=== PATIENT | female | born 1995 | race Caucasian/White ===

== ENCOUNTER 2017-01-09 18:10 | Emergency (ER) | payer SELFPAY ==
[2017-01-09 18:36] VITALS: BP 110/66
--- NOTE | 2017-01-09 19:49 | Emergency Department Report ---
ED Female HPI - General Chief complaint: Vaginal Bleeding Stated complaint: VAGINAL BLEEDING Time Seen by Provider: 01/09/17 19:10 Source: patient Mode of arrival: Ambulatory Limitations: No Limitations - History of Present Illness MD Complaint: vaginal bleeding -: Sudden Time: 11:45 Location: other ("vaginal spotting") Severity: mild Severity scale (0 -10): 2 Quality: other (no pain ) Consistency: intermittent Worsens with: none Are you Now?: No Last Menstrual Period: 12/11/16 EDC: 09/17/17 Associated Symptoms: vaginal bleeding. denies: abdominal pain, nausea/vomiting , fever/chills, dysuria, rash, shortness of breath, syncope, weakness - Related Data Sexually active: Yes : 0 Para: 0 A: 0 Previous Rx's Medication Instructions Recorded Last Taken Type metroNIDAZOLE [Flagyl] 500 mg PO Q12HR #20 tab 01/09/17 Unknown Rx Allergies Allergy/AdvReac Type Severity Reaction Status Date / Time No Known Allergies Allergy Unverified 01/09/17 18:34 ED Review of Systems ROS: Stated complaint: VAGINAL BLEEDING Other details as noted in HPI Constitutional: denies: chills, fever Eyes: denies: eye pain, eye discharge, vision change ENT: denies: ear pain, throat pain Respiratory: denies: cough, shortness of breath, wheezing Cardiovascular: denies: chest pain, palpitations Endocrine: no symptoms reported Gastrointestinal: denies: abdominal pain, nausea, diarrhea Genitourinary: other (vaginal spotting ). denies: urgency, dysuria, frequency, discharge Musculoskeletal: denies: back pain, joint swelling, arthralgia Skin: denies: rash, lesions Neurological: denies: headache, weakness, paresthesias Psychiatric: denies: anxiety, depression Hematological/Lymphatic: denies: easy bleeding, easy bruising ED Past Medical Hx - Past Medical History Previous Medical History?: No - Surgical History Past Surgical History?: No - Social History Smoking Status: Never Smoker Substance Use Type: None - Medications Home Medications: Home Medications Medication Instructions Recorded Confirmed Last Taken Type metroNIDAZOLE [Flagyl] 500 mg PO Q12HR #20 tab 01/09/17 Unknown Rx ED Physical Exam - General Limitations: No Limitations General appearance: alert, in no apparent distress - Head Head exam: Present: atraumatic, normocephalic - Eye Eye exam: Present: normal appearance, PERRL, EOMI Pupils: Present: normal accommodation - ENT ENT exam: Present: normal exam, mucous membranes moist - Neck Neck exam: Present: normal inspection - Respiratory Respiratory exam: Present: normal lung sounds bilaterally. Absent: respiratory distress - Cardiovascular Cardiovascular Exam: Present: regular rate, normal rhythm. Absent: systolic murmur, diastolic murmur, rubs, gallop - GI/Abdominal GI/Abdominal exam: Present: soft, normal bowel sounds - Rectal Rectal exam: Present: deferred - External exam: Present: normal external exam. Absent: erythema, swelling, lesions, lacerations, ecchymosis, bleeding Speculum exam: Present: erythema, vaginal discharge. Absent: cervical discharge , vaginal bleeding, foreign body, tissue, laceration Bi-manual exam: Present: normal bi-manual exam - Extremities Exam Extremities exam: Present: normal inspection, full ROM. Absent: tenderness - Back Exam Back exam: Present: normal inspection - Neurological Exam Neurological exam: Present: alert, oriented X3 - Psychiatric Psychiatric exam: Present: normal affect, normal mood - Skin Skin exam: Present: warm, dry, intact, normal color. Absent: rash ED Course Vital Signs 01/09/17 18:34 Temperature 98.1 F Pulse Rate 76 Respiratory 20 Rate Blood Pressure 110/66 O2 Sat by Pulse 98 Oximetry ED Medical Decision Making - Lab Data Result diagrams: 01/09/17 19:37 - Medical Decision Making pt endorse vaginal spotting immediately after intercourse today , this is third incident with partner in last month pt denies pain no dysuria no urgency no ferequency no discharge, pt no abdominal pain no n/v LMP 1 month ago , pt endorses " I came in because this is the 3rd time its happened" wet prep: BV, GC /Ch pending vaginal : mild vaginal erythema scant brownish discharge cervix os closed no discharge no lesions no rash no open sores will tx for bv pt directed to follow up with [facility] as scheduled in two weeks or return to emergency if symptoms worsen. will tx for bv as pt denies prophylactic STI treatment, labs noted normal hcg neg. Critical care attestation.: If time is entered above; I have spent that time in minutes in the direct care of this critically ill patient, excluding procedure time. ED Disposition Clinical Impression: Bacterial vaginosis Disposition: - TO HOME OR SELFCARE Is pt being admited?: No Does the pt Need Aspirin: No Condition: Good Instructions: Bacterial Vaginosis (ED) Prescriptions: metroNIDAZOLE [Flagyl] 500 mg PO Q12HR #20 tab Referrals: PRIMARY CARE, [Primary Care Provider] - 3-5 Days Forms: STI Treatment and Prevention, Work/School Release Form(ED) Time of Disposition: 21:33
[2017-01-09 20:17] LABS: Basophils % (Auto) 0.5 % (0.0-1.8); Eosinophils % (Auto) 3.2 % (0.0-4.3); Hematocrit 29.6 % (30.3-42.9); Mean Corpuscular HGB Conc 30 % (30-34); Mean Corpuscular Volume 82 fl (79-97); Platelet Count 239 K/mm3 (140-440); Red Cell Distribution Width 17.5 % (13.2-15.2); White Blood Count 9.9 K/mm3 (4.5-11.0)
[2017-01-09 20:37] LABS: Mean Corpuscular Hemoglobin 25 pg (28-32)
[2017-01-09 20:56] LABS: Bilirubin,Urine NEG (Negative); Blood,Urine MOD (Negative); Ketones,Urine NEG (Negative); Leukocyte Esterase,Urine TR (Negative); Mucus,Urine 2+ /HPF; Nitrite,Urine NEG (Negative); Protein,Urine <15 mg/dL mg/dL (Negative); Urobilinogen,Urine < 2.0 mg/dL (<2.0); WBC,Urine < 1.0 /HPF (0.0-6.0)
== END 2017-01-09 21:56 | disposition home or self-care (01) ==
LOC: ED 18:10
DX: N76.0 Acute vaginitis (principal)
CPT/HCPCS: 36415; 81001; 81025; 85025; 87210; 87591; 99284

== ENCOUNTER 2017-08-12 12:16 | Outpatient (CLI) | payer OTHER ==
[2017-08-12 14:02] LABS: Bacteria,Urine 1+ /HPF (Negative); Bilirubin,Urine NEG (Negative); Blood,Urine NEG (Negative); Color,Urine Yellow (Yellow); Mucus,Urine FEW /HPF; Nitrite,Urine NEG (Negative); Urobilinogen,Urine < 2.0 mg/dL (<2.0)
[2017-08-12 14:09] LABS: Amphetamine Screen,Urine PRESUMPTIVE NEGATIVE; Benzodiazepines Screen,Urine PRESUMPTIVE NEGATIVE; Cannabinoid Screen,Urine PRESUMPTIVE NEGATIVE; Cocaine Screen,Urine PRESUMPTIVE NEGATIVE; Methadone Screen,Urine PRESUMPTIVE NEGATIVE; Opiate Screen,Urine PRESUMPTIVE NEGATIVE
[2017-08-12 14:23] VITALS: BP 125/82
== END 2017-08-12 14:53 | disposition home or self-care (01) ==
LOC: TRG 12:16
PROVIDERS: ATTEND Obstetrics & Gynecology
DX: O47.03 False labor before 37 completed weeks of gestation, third trimester (principal); Z3A.34 34 weeks gestation of pregnancy
CPT/HCPCS: 59025; 80307; 81001

== ENCOUNTER 2017-09-01 15:02 | Inpatient (IN) | payer OTHER ==
[2017-09-01 16:14] LABS: Bilirubin,Urine NEG (Negative); Blood,Urine NEG (Negative); Color,Urine Amber (Yellow); Mucus,Urine 3+ /HPF; Nitrite,Urine NEG (Negative); Urobilinogen,Urine < 2.0 mg/dL (<2.0)
[2017-09-01 16:22] LABS: Hematocrit 28.6 % (30.3-42.9); Hemoglobin 8.8 gm/dl (10.1-14.3); Mean Corpuscular HGB Conc 31 % (30-34); Mean Corpuscular Volume 80 fl (79-97); Platelet Count 225 K/mm3 (140-440); Red Blood Count 3.57 M/mm3 (3.65-5.03)
[2017-09-01 16:25] LABS: Mean Corpuscular Hemoglobin 25 pg (28-32); Red Cell Distribution Width 20.2 % (13.2-15.2)
[2017-09-01 16:39] LABS: Alanine Aminotransferase 6 units/L (7-56); Uric Acid 6.9 mg/dL (3.5-7.6)
--- NOTE | 2017-09-01 19:32 | Ultrasound Report ---
FINAL REPORT PROCEDURE: Obstetrical ultrasound. TECHNIQUE: Real-time transabdominal sonography of the uterus, placenta, amniotic fluid, adnexa, and fetus was performed with image documentation. Measurements were obtained to determine age/size. M-mode Doppler was used to document heartbeat. CPT 72744 HISTORY: FOR DATES, GROWTH AND FULL ANATOMY COMPARISON: No prior studies are available for comparison. FINDINGS: There is a single viable fetus in cephalic presentation. Cardiac activity is documented at 138 beats per minute. There are no obvious congenital anomalies. The amniotic fluid volume appears normal. The amniotic fluid index measures 21.0 centimeters. The placenta is anterior in location. The cervical length is 3.4 centimeters. The measured parameters are as follows: Biparietal diameter 8.7 centimeters, head circumference 32.2 centimeters, abdominal circumference 31.9 centimeters, femur length 7.4 centimeters. The calculated menstrual age is 36 weeks 2 days. The estimated date of confinement is 09/27/2017. The estimated weight is 2915 grams. IMPRESSION: Single viable fetus in cephalic presentation with a menstrual age of 36 weeks 2 days.
[2017-09-01] MEDS ORDERED: ZOFRAN IV PRN (20:20)
[2017-09-01] MEDS ORDERED: BRETHINE IVP PRN (20:20)
[2017-09-01] MEDS ORDERED: XYLOCAINE 2% INFILTRATI ONE (20:20)
[2017-09-01] MEDS ORDERED: SUBLIMAZE IV PRN (20:20)
[2017-09-01] MEDS ORDERED: BRETHINE SUB-Q PRN (20:20)
[2017-09-01] MEDS ORDERED: MINERAL OIL PO PRN (20:20)
[2017-09-01] MEDS ORDERED: ePHEDrine SULFATE IV PRN (20:20)
[2017-09-01] MEDS ORDERED: POLYCILLIN/NS 2 GM/100 ML 2 GM/100 ML BAG IV ONE (20:20)
[2017-09-01] MEDS ORDERED: APRESOLINE IV PRN (20:23)
[2017-09-01] MEDS ORDERED: MAGNESIUM SULFATE 4GM/100ML 4 GM/100 ML BAG IV ONE ×2 (20:23→20:26)
[2017-09-01] MEDS ORDERED: LACTATED RINGERS 1,000 ML ONE (20:25)
--- NOTE | 2017-09-01 20:30 | History and Physical Report ---
History of Present Illness Date of examination: 09/01/17 Chief complaint: Headache Spots in front of her eyes History of present illness: 22-year-old at unsure date (?36+2 wks or ?37+6 wks) presents to the [facility], she has no physician and has had no care with this . Essential history is patient with no care. She does claim to have gone [facility] in March where an ultrasound was done which gave her AMISHA as 09/16/2017 making her 37+5 weeks. She presented to triage due to complaint of headache, increasing pedal edema and visual symptoms. In triage, her blood pressure was noted to be elevated with range 130-190/70s-120's. Urinalysis had 100 mg of protein. HELLP labs however negative. Growth scan obtained puts infant at 36+2 weeks with AMISHA 09/27/2017. On exam, she is 5 cm dilated -2 station Past History Past Medical History: no pertinent history Past Surgical History: no surgical history [employer] History: denies: chlamydia, gonorrhea, hepatitis B, hepatitis C, herpes, HIV , syphilis, trichomonas Social history: single, full code. denies: smoking, IV drug use - Obstetrical History Expected Date of Delivery: 09/16/17 Actual Gestation: 38 Week(s) 0 Day(s) : 1 Para: 0 Medications and Allergies Allergies Allergy/AdvReac Type Severity Reaction Status Date / Time No Known Allergies Allergy Verified 09/01/17 20:23 Home Medications Medication Instructions Recorded Confirmed Last Taken Type No Known Home Medications [No 08/12/17 09/02/17 Unknown History Reported Home Medications] Active Meds: Active Medications Ephedrine Sulfate (Ephedrine Sulfate) 10 mg IV Q2M PRN PRN Reason: Hypotension Fentanyl (Sublimaze) 100 mcg IV Q2H PRN PRN Reason: Labor Pain Ampicillin Sodium (Polycillin/Ns 2 Gm/100 Ml) 2 gm in 100 mls @ 100 mls/hr IV ONCE ONE PRN Reason: Protocol Stop: 09/01/17 21:19 Ampicillin Sodium (Polycillin/Ns 1 Gm/50 Ml) 1 gm in 50 mls @ 100 mls/hr IV Q4H CYNDI PRN Reason: Protocol Lactated Ringer's (Lactated Ringers) 1,000 mls @ 125 mls/hr IV DIRECT CYNDI Oxytocin/Sodium Chloride (Pitocin/Ns 20 Unit/1000ml Drip) 20 units in 1,000 mls @ 125 mls/hr IV DIRECT CYNDI Oxytocin/Sodium Chloride (Pitocin/Ns 30 Unit/500ml) 30 units in 500 mls @ 1 mls /hr IV TITR CYNDI; 1 MILLIUNITS/MIN PRN Reason: Protocol Oxytocin/Sodium Chloride (Pitocin/Ns 30 Unit/500ml) 30 units in 500 mls @ 2 mls /hr IV TITR CYNDI PRN Reason: Protocol Lidocaine (Xylocaine 2%) 20 ml INFILTRATI ONCE ONE Stop: 09/01/17 20:21 Mineral Oil (Mineral Oil) 30 ml PO QHS PRN PRN Reason: Constipation Ondansetron HCl (Zofran) 4 mg IV Q8H PRN PRN Reason: Nausea And Vomiting Terbutaline Sulfate (Brethine) 0.25 mg SUB-Q ONCE PRN PRN Reason: Hyperstimulation/Hypertonicity Terbutaline Sulfate (Brethine) 0.25 mg IVP ONCE PRN PRN Reason: Hyperstimulation/Hypertonicity Review of Systems Constitutional: no fever, no chills, no lethargy, no chronic headaches Eyes: blind spots, no blurred vision, no diplopia, no photophobia Ears, nose, mouth and throat: headache Cardiovascular: high blood pressure, leg edema, no chest pain, no orthopnea, no palpitations, no edema, no syncope, no lightheadedness, no shortness of breath, no dyspnea on exertion, no paroxysmal nocturnal dyspnea Respiratory: no cough, no hemoptysis, no shortness of breath, no dyspnea on exertion, no respiratory infections, no home oxygen Gastrointestinal: no abdominal pain, no nausea, no vomiting, no heartburn, no indigestion Genitourinary: no vaginal bleeding, no leakage of fluid, no contractions - Vital Signs Vital signs: Vital Signs Pulse BP Pulse Ox 99 H 148/103 99 09/01/17 15:39 09/01/17 15:39 09/01/17 15:39 Temp Pulse Resp BP Pulse Ox 71 179/97 99 09/01/17 20:18 09/01/17 20:18 09/01/17 19:43 - Physical Exam Cardiovascular: Regular rate, Normal S1, Normal S2 Lungs: Positive: Clear to auscultation, Normal air movement Abdomen: Positive: normal appearance, soft. Negative: distention, tenderness, guarding, rigidity Genitourinary (Female): Positive: normal external genitalia Uterus: Positive: enlarged (EFW ~ 2900 from sono) Adnexa: both: normal Extremities: Positive: normal - Obstetrical FHR: category 1 Cervical Dilatation: 5 station: -2 Results Result Diagrams: 09/01/17 Unknown 09/01/17 Unknown Abnormal lab results 09/01/17 09/01/17 09/01/17 Range/Units Unknown Unknown Unknown RBC 3.57 L (3.65-5.03) M/mm3 Hgb 8.8 L (10.1-14.3) gm/dl Hct 28.6 L (30.3-42.9) % MCH 25 L (28-32) pg RDW 20.2 H (13.2-15.2) % ALT 6 L (7-56) units/L Lactate Dehydrogenase 283 H (91-180) units/L Ur Specific [place] 1.045 H (1.003-1.030) Urine WBC (Auto) 15.0 H (0.0-6.0) /HPF All other labs normal. Assessment and Plan A: 22-year-old at 37+6 weeks with questionable dating -At 36+2 wks via [place] (AMISHA - 09/27/17) -Cat 1 tracing Issues -Pre Eclampsia w/ severe features -No PNC -Severe Range BP's -?IUGR -Nml HELLP labs P: -Admit -Obtain routine labs including WCC that -Start magnesium per protocol -Start antihypertensives -Start Induction/Augmentation process -Despite normal vaginal delivery -NICU aware - Patient Problems (1) 37 weeks gestation of Current Visit: Yes Status: Acute (2) Severe pre-eclampsia affecting first Current Visit: Yes Status: Acute (3) No care in current Current Visit: Yes Status: Acute (4) IUGR, Current Visit: Yes Status: Suspected
[2017-09-01] MEDS: LACTATED RINGERS 1,000 ML IV SCH (20:35)
[2017-09-01] MEDS ORDERED: NORMODYNE IV PRN (20:39)
[2017-09-01] MEDS ORDERED: MAGNESIUM SULFATE 40GM/1000ML 40 GM/1,000 ML BAG IV SCH (21:00)
[2017-09-01] MEDS ORDERED: PITOCin/NS 20 UNIT/1000ML DRIP 20 UNITS/1,000 ML BAG IV SCH (21:00)
[2017-09-01] MEDS ORDERED: PITOCin/NS 30 UNIT/500ML 30 UNITS/500 ML BAG IV SCH (21:00)
[2017-09-01 21:04] LABS: Hematocrit 30.5 % (30.3-42.9); Hemoglobin 9.6 gm/dl (10.1-14.3); Mean Corpuscular HGB Conc 32 % (30-34); Mean Corpuscular Volume 79 fl (79-97); Platelet Count 223 K/mm3 (140-440); Red Blood Count 3.85 M/mm3 (3.65-5.03)
[2017-09-01 21:05] LABS: Mean Corpuscular Hemoglobin 25 pg (28-32); Red Cell Distribution Width 20.7 % (13.2-15.2)
[2017-09-01] MEDS: MAGNESIUM SULFATE 40 GM in NACL 0.9% 1000 ML 1,000 ML IV SCH (21:09)
[2017-09-01 21:57] LABS: Hepatitis C Virus Antibody Non-Reactive (NonReactive)
[2017-09-01] MEDS: NORMODYNE PO SCH (21:58)
[2017-09-01 22:00] LABS: Rubella IgG Antibody Immune (Immune)
[2017-09-01 22:03] LABS: Amphetamine Screen,Urine PRESUMPTIVE NEGATIVE; Benzodiazepines Screen,Urine PRESUMPTIVE NEGATIVE; Cocaine Screen,Urine PRESUMPTIVE NEGATIVE; Methadone Screen,Urine PRESUMPTIVE NEGATIVE; Opiate Screen,Urine PRESUMPTIVE NEGATIVE
[2017-09-01 22:18] LABS: Cannabinoid Screen,Urine PRESUMPTIVE NEGATIVE
[2017-09-01] MEDS: PITOCin/NS 30 UNIT/500ML 30 UNITS/500 ML BAG IV SCH (22:35)
[2017-09-02] MEDS: POLYCILLIN/NS 1 GM/50 ML 1 GM/50 ML BAG IV SCH ×3 (00:50→10:17)
--- NOTE | 2017-09-02 03:59 | Progress Note ---
Assessment and Plan - Patient Problems (1) 37 weeks gestation of Current Visit: Yes Status: Acute (2) Severe pre-eclampsia affecting first Current Visit: Yes Status: Acute (3) No care in current Current Visit: Yes Status: Acute (4) IUGR, Current Visit: Yes Status: Suspected Subjective - Subjective Date of service: 09/02/17 Patient reports: new complaints Objective - Vital Signs Vital Signs: Vital Signs - 12hr 09/01/17 09/01/17 09/01/17 16:04 16:05 16:09 Temperature Pulse Rate 93 H 88 82 Respiratory Rate Blood Pressure 137/98 Blood Pressure [Left] Blood Pressure [Right] O2 Sat by Pulse 99 99 Oximetry 09/01/17 09/01/17 09/01/17 16:14 16:19 16:20 Temperature Pulse Rate 118 H 103 H Respiratory Rate Blood Pressure 134/96 Blood Pressure [Left] Blood Pressure [Right] O2 Sat by Pulse 99 99 Oximetry 09/01/17 09/01/17 09/01/17 16:24 16:29 16:34 Temperature Pulse Rate 100 H 90 80 Respiratory Rate Blood Pressure Blood Pressure [Left] Blood Pressure [Right] O2 Sat by Pulse 100 100 99 Oximetry 09/01/17 09/01/17 09/01/17 16:35 16:39 16:44 Temperature Pulse Rate 81 84 96 H Respiratory Rate Blood Pressure 138/93 Blood Pressure [Left] Blood Pressure [Right] O2 Sat by Pulse 99 100 Oximetry 09/01/17 09/01/17 09/01/17 16:49 16:50 16:54 Temperature Pulse Rate 110 H 104 H 88 Respiratory Rate Blood Pressure 140/93 Blood Pressure [Left] Blood Pressure [Right] O2 Sat by Pulse 99 99 Oximetry 09/01/17 09/01/17 09/01/17 16:59 17:04 17:05 Temperature Pulse Rate 99 H 86 86 Respiratory Rate Blood Pressure 131/88 Blood Pressure [Left] Blood Pressure [Right] O2 Sat by Pulse 99 99 Oximetry 09/01/17 09/01/17 09/01/17 17:09 17:14 17:19 Temperature Pulse Rate 97 H 95 H 99 H Respiratory Rate Blood Pressure Blood Pressure [Left] Blood Pressure [Right] O2 Sat by Pulse 99 99 99 Oximetry 09/01/17 09/01/17 09/01/17 17:20 17:24 17:29 Temperature Pulse Rate 98 H 85 86 Respiratory Rate Blood Pressure 135/92 Blood Pressure [Left] Blood Pressure [Right] O2 Sat by Pulse 100 99 Oximetry 09/01/17 09/01/17 09/01/17 17:34 17:35 17:39 Temperature Pulse Rate 73 79 Respiratory Rate Blood Pressure 135/91 Blood Pressure [Left] Blood Pressure [Right] O2 Sat by Pulse 99 99 Oximetry 09/01/17 09/01/17 09/01/17 17:44 17:49 17:50 Temperature Pulse Rate 88 90 88 Respiratory Rate Blood Pressure 134/88 Blood Pressure [Left] Blood Pressure [Right] O2 Sat by Pulse 98 99 Oximetry 09/01/17 09/01/17 09/01/17 17:54 17:59 18:02 Temperature Pulse Rate 95 H 82 84 Respiratory Rate Blood Pressure Blood Pressure [Left] Blood Pressure [Right] O2 Sat by Pulse 99 100 89 Oximetry 09/01/17 09/01/17 09/01/17 18:04 18:05 18:09 Temperature Pulse Rate 80 82 81 Respiratory Rate Blood Pressure 147/100 Blood Pressure [Left] Blood Pressure [Right] O2 Sat by Pulse 100 100 Oximetry 09/01/17 09/01/17 09/01/17 18:14 18:20 18:21 Temperature Pulse Rate 106 H 88 89 Respiratory Rate Blood Pressure 153/109 Blood Pressure [Left] Blood Pressure [Right] O2 Sat by Pulse 98 95 90 Oximetry 09/01/17 09/01/17 09/01/17 18:25 19:16 19:18 Temperature Pulse Rate 93 H 77 83 Respiratory Rate Blood Pressure 163/102 Blood Pressure [Left] Blood Pressure [Right] O2 Sat by Pulse 100 99 Oximetry 09/01/17 09/01/17 09/01/17 19:23 19:28 19:33 Temperature Pulse Rate 78 73 86 Respiratory Rate Blood Pressure 160/101 Blood Pressure [Left] Blood Pressure [Right] O2 Sat by Pulse 100 99 100 Oximetry 09/01/17 09/01/17 09/01/17 19:38 19:43 19:48 Temperature Pulse Rate 80 72 81 Respiratory Rate Blood Pressure 163/111 177/109 Blood Pressure [Left] Blood Pressure [Right] O2 Sat by Pulse 100 99 Oximetry 09/01/17 09/01/17 09/01/17 19:58 20:08 20:18 Temperature Pulse Rate 83 76 71 Respiratory Rate Blood Pressure 170/116 166/107 179/97 Blood Pressure [Left] Blood Pressure [Right] O2 Sat by Pulse Oximetry 09/01/17 09/01/17 09/01/17 20:29 20:30 20:35 Temperature Pulse Rate 78 83 96 H Respiratory Rate Blood Pressure 194/121 Blood Pressure [Left] Blood Pressure [Right] O2 Sat by Pulse 100 97 Oximetry 09/01/17 09/01/17 09/01/17 20:38 20:39 20:44 Temperature Pulse Rate 90 97 H Respiratory Rate Blood Pressure 194/121 170/114 Blood Pressure [Left] Blood Pressure [Right] O2 Sat by Pulse 100 Oximetry 09/01/17 09/01/17 09/01/17 20:49 20:52 20:55 Temperature Pulse Rate 98 H 101 H 100 H Respiratory Rate Blood Pressure 173/123 176/110 Blood Pressure [Left] Blood Pressure [Right] O2 Sat by Pulse 100 Oximetry 09/01/17 09/01/17 09/01/17 20:59 21:01 21:06 Temperature Pulse Rate 108 H 93 H Respiratory Rate Blood Pressure 177/121 177/121 159/99 Blood Pressure [Left] Blood Pressure [Right] O2 Sat by Pulse Oximetry 09/01/17 09/01/17 09/01/17 21:08 21:09 21:13 Temperature Pulse Rate 95 H 90 93 H Respiratory Rate Blood Pressure 157/112 Blood Pressure [Left] Blood Pressure [Right] O2 Sat by Pulse 99 99 Oximetry 09/01/17 09/01/17 09/01/17 21:18 21:20 21:23 Temperature Pulse Rate 97 H 98 H 95 H Respiratory Rate Blood Pressure 173/112 Blood Pressure [Left] Blood Pressure [Right] O2 Sat by Pulse 99 100 Oximetry 09/01/17 09/01/17 09/01/17 21:28 21:29 21:33 Temperature Pulse Rate 97 H 96 H 97 H Respiratory Rate Blood Pressure 157/110 Blood Pressure [Left] Blood Pressure [Right] O2 Sat by Pulse 100 99 Oximetry 09/01/17 09/01/17 09/01/17 21:38 21:39 21:43 Temperature Pulse Rate 92 H 96 H 98 H Respiratory Rate Blood Pressure 149/99 Blood Pressure [Left] Blood Pressure [Right] O2 Sat by Pulse 100 100 Oximetry 09/01/17 09/01/17 09/01/17 21:48 21:49 21:53 Temperature Pulse Rate 94 H 90 90 Respiratory Rate Blood Pressure 157/102 Blood Pressure [Left] Blood Pressure [Right] O2 Sat by Pulse 99 100 Oximetry 09/01/17 09/01/17 09/01/17 21:58 22:00 22:03 Temperature Pulse Rate 95 H 87 96 H Respiratory Rate Blood Pressure 154/105 154/105 Blood Pressure [Left] Blood Pressure [Right] O2 Sat by Pulse 99 100 Oximetry 09/01/17 09/01/17 09/01/17 22:08 22:09 22:13 Temperature Pulse Rate 95 H 92 H 98 H Respiratory Rate Blood Pressure 160/105 Blood Pressure [Left] Blood Pressure [Right] O2 Sat by Pulse 99 99 Oximetry 09/01/17 09/01/17 09/01/17 22:18 22:19 22:23 Temperature Pulse Rate 94 H 89 91 H Respiratory Rate Blood Pressure 159/106 Blood Pressure [Left] Blood Pressure [Right] O2 Sat by Pulse 98 99 Oximetry 09/01/17 09/01/17 09/01/17 22:28 22:30 22:33 Temperature Pulse Rate 99 H 94 H 92 H Respiratory Rate Blood Pressure 154/98 Blood Pressure [Left] Blood Pressure [Right] O2 Sat by Pulse 98 100 Oximetry 09/01/17 09/01/17 09/01/17 22:38 22:39 22:43 Temperature Pulse Rate 86 90 90 Respiratory Rate Blood Pressure 153/101 Blood Pressure [Left] Blood Pressure [Right] O2 Sat by Pulse 100 100 Oximetry 09/01/17 09/01/17 09/01/17 22:48 22:49 22:53 Temperature Pulse Rate 88 86 97 H Respiratory Rate Blood Pressure 152/104 Blood Pressure [Left] Blood Pressure [Right] O2 Sat by Pulse 100 99 Oximetry 09/01/17 09/01/17 09/01/17 22:58 22:59 23:00 Temperature 96.7 F L Pulse Rate 88 95 H 95 H Respiratory 12 Rate Blood Pressure 142/103 Blood Pressure 142/103 [Left] Blood Pressure [Right] O2 Sat by Pulse 100 100 Oximetry 09/01/17 09/01/17 09/01/17 23:03 23:08 23:09 Temperature Pulse Rate 94 H 97 H 91 H Respiratory Rate Blood Pressure 145/97 Blood Pressure [Left] Blood Pressure [Right] O2 Sat by Pulse 99 99 Oximetry 09/01/17 09/01/17 09/01/17 23:13 23:18 23:19 Temperature Pulse Rate 100 H 86 88 Respiratory Rate Blood Pressure 134/92 Blood Pressure [Left] Blood Pressure [Right] O2 Sat by Pulse 100 100 Oximetry 09/01/17 09/01/17 09/01/17 23:23 23:28 23:29 Temperature Pulse Rate 89 91 H 91 H Respiratory Rate Blood Pressure 143/93 Blood Pressure [Left] Blood Pressure [Right] O2 Sat by Pulse 100 100 Oximetry 09/01/17 09/01/17 09/01/17 23:33 23:38 23:40 Temperature Pulse Rate 92 H 87 93 H Respiratory Rate Blood Pressure 160/91 Blood Pressure [Left] Blood Pressure [Right] O2 Sat by Pulse 100 100 Oximetry 09/01/17 09/01/17 09/01/17 23:43 23:48 23:50 Temperature Pulse Rate 90 106 H 86 Respiratory Rate Blood Pressure 134/88 Blood Pressure [Left] Blood Pressure [Right] O2 Sat by Pulse 100 100 Oximetry 09/01/17 09/01/17 09/02/17 23:53 23:58 00:00 Temperature Pulse Rate 86 89 94 H Respiratory Rate Blood Pressure 135/90 Blood Pressure [Left] Blood Pressure [Right] O2 Sat by Pulse 100 100 Oximetry 09/02/17 09/02/17 09/02/17 00:03 00:08 00:09 Temperature Pulse Rate 90 88 96 H Respiratory Rate Blood Pressure 139/91 Blood Pressure [Left] Blood Pressure [Right] O2 Sat by Pulse 100 100 Oximetry 09/02/17 09/02/17 09/02/17 00:13 00:18 00:19 Temperature Pulse Rate 94 H 85 97 H Respiratory Rate Blood Pressure 137/87 Blood Pressure [Left] Blood Pressure [Right] O2 Sat by Pulse 100 100 Oximetry 09/02/17 09/02/17 09/02/17 00:23 00:28 00:30 Temperature Pulse Rate 96 H 87 86 Respiratory Rate Blood Pressure 136/79 Blood Pressure [Left] Blood Pressure [Right] O2 Sat by Pulse 100 98 Oximetry 02/06/18 02/06/18 02/06/18 00:33 00:38 00:39 Temperature Pulse Rate 87 98 H 89 Respiratory Rate Blood Pressure 136/89 Blood Pressure [Left] Blood Pressure [Right] O2 Sat by Pulse 99 99 Oximetry 09/02/17 09/02/17 09/02/17 00:43 00:48 00:50 Temperature 97.0 F L Pulse Rate 88 91 H 91 H Respiratory 12 Rate Blood Pressure 137/85 Blood Pressure [Left] Blood Pressure 137/85 [Right] O2 Sat by Pulse 100 100 100 Oximetry 09/02/17 09/02/17 09/02/17 00:53 00:58 00:59 Temperature Pulse Rate 91 H 85 87 Respiratory Rate Blood Pressure 137/90 Blood Pressure [Left] Blood Pressure [Right] O2 Sat by Pulse 100 100 Oximetry 09/02/17 09/02/17 09/02/17 01:03 01:08 01:09 Temperature Pulse Rate 91 H 87 87 Respiratory Rate Blood Pressure 134/83 Blood Pressure [Left] Blood Pressure [Right] O2 Sat by Pulse 99 99 Oximetry 09/02/17 09/02/17 09/02/17 01:13 01:18 01:23 Temperature Pulse Rate 85 84 94 H Respiratory Rate Blood Pressure Blood Pressure [Left] Blood Pressure [Right] O2 Sat by Pulse 100 100 99 Oximetry 09/02/17 09/02/17 09/02/17 01:28 01:33 01:38 Temperature Pulse Rate 95 H 97 H 86 Respiratory Rate Blood Pressure Blood Pressure [Left] Blood Pressure [Right] O2 Sat by Pulse 99 99 100 Oximetry 09/02/17 09/02/17 09/02/17 01:43 01:48 01:53 Temperature Pulse Rate 87 87 89 Respiratory Rate Blood Pressure Blood Pressure [Left] Blood Pressure [Right] O2 Sat by Pulse 100 99 99 Oximetry 09/02/17 09/02/17 09/02/17 01:58 02:03 02:08 Temperature Pulse Rate 85 86 92 H Respiratory Rate Blood Pressure Blood Pressure [Left] Blood Pressure [Right] O2 Sat by Pulse 100 100 100 Oximetry 09/02/17 09/02/17 09/02/17 02:13 02:15 02:18 Temperature Pulse Rate 87 82 94 H Respiratory Rate Blood Pressure 136/84 Blood Pressure [Left] Blood Pressure [Right] O2 Sat by Pulse 100 100 Oximetry 09/02/17 09/02/17 09/02/17 02:23 02:28 02:33 Temperature Pulse Rate 87 87 87 Respiratory Rate Blood Pressure Blood Pressure [Left] Blood Pressure [Right] O2 Sat by Pulse 100 99 99 Oximetry 09/02/17 09/02/17 09/02/17 02:38 02:43 02:48 Temperature Pulse Rate 87 83 87 Respiratory Rate Blood Pressure Blood Pressure [Left] Blood Pressure [Right] O2 Sat by Pulse 100 100 99 Oximetry 09/02/17 09/02/17 09/02/17 02:53 02:58 03:03 Temperature Pulse Rate 86 90 90 Respiratory Rate Blood Pressure Blood Pressure [Left] Blood Pressure [Right] O2 Sat by Pulse 100 100 98 Oximetry 09/02/17 09/02/17 09/02/17 03:08 03:13 03:15 Temperature Pulse Rate 88 86 86 Respiratory Rate Blood Pressure 121/81 Blood Pressure [Left] Blood Pressure [Right] O2 Sat by Pulse 98 99 Oximetry 09/02/17 09/02/17 09/02/17 03:18 03:23 03:28 Temperature Pulse Rate 84 85 84 Respiratory Rate Blood Pressure Blood Pressure [Left] Blood Pressure [Right] O2 Sat by Pulse 99 98 99 Oximetry 09/02/17 09/02/17 09/02/17 03:33 03:38 03:43 Temperature Pulse Rate 89 84 84 Respiratory Rate Blood Pressure Blood Pressure [Left] Blood Pressure [Right] O2 Sat by Pulse 99 99 99 Oximetry 09/02/17 09/02/17 09/02/17 03:48 03:53 03:58 Temperature Pulse Rate 90 95 H 85 Respiratory Rate Blood Pressure Blood Pressure [Left] Blood Pressure [Right] O2 Sat by Pulse 98 99 99 Oximetry - Exam FHR: category 1 - Labs Labs: Abnormal Labs 09/01/17 09/01/17 09/01/17 20:43 Unknown Unknown RBC 3.57 L Hgb 9.6 L 8.8 L Hct 28.6 L MCH 25 L 25 L RDW 20.7 H 20.2 H Magnesium ALT Lactate Dehydrogenase Ur Specific [place] 1.045 H Urine WBC (Auto) 15.0 H 09/01/17 09/02/17 Unknown 00:21 RBC Hgb Hct MCH RDW Magnesium 4.50 H ALT 6 L Lactate Dehydrogenase 283 H Ur Specific [place] Urine WBC (Auto) Laboratory Results - last 24 hr 09/01/17 09/01/17 09/01/17 19:40 20:43 20:43 WBC 10.7 RBC 3.85 Hgb 9.6 L Hct 30.5 MCV 79 MCH 25 L MCHC 32 RDW 20.7 H Plt Count 223 Creatinine Estimated GFR Uric Acid Magnesium AST ALT Lactate Dehydrogenase Urine Color Urine Turbidity Urine pH Ur Specific [place] Urine Protein Urine Glucose (UA) Urine Ketones Urine Blood Urine Nitrite Urine Bilirubin Urine Urobilinogen Ur Leukocyte Esterase Urine WBC (Auto) Urine RBC (Auto) U Epithel Cells (Auto) Urine Mucus Urine Opiates Screen Urine Methadone Screen Ur Barbiturates Screen Ur Phencyclidine Scrn Ur Amphetamines Screen U Benzodiazepines Scrn Urine Cocaine Screen U Marijuana (THC) Screen Drugs of Abuse Note Hep Bs Antigen Hepatitis C Antibody Non-reactive HIV 1&2 Antibody Rapid HIV P24 Antigen Rubella IgG Antibody Immune Blood Type O POSITIVE Antibody Screen Negative 09/01/17 09/01/17 09/01/17 20:43 20:43 21:40 WBC RBC Hgb Hct MCV MCH MCHC RDW Plt Count Creatinine Estimated GFR Uric Acid Magnesium AST ALT Lactate Dehydrogenase Urine Color Urine Turbidity Urine pH Ur Specific [place] Urine Protein Urine Glucose (UA) Urine Ketones Urine Blood Urine Nitrite Urine Bilirubin Urine Urobilinogen Ur Leukocyte Esterase Urine WBC (Auto) Urine RBC (Auto) U Epithel Cells (Auto) Urine Mucus Urine Opiates Screen Presumptive negative Urine Methadone Screen Presumptive negative Ur Barbiturates Screen Presumptive negative Ur Phencyclidine Scrn Presumptive negative Ur Amphetamines Screen Presumptive negative U Benzodiazepines Scrn Presumptive negative Urine Cocaine Screen Presumptive negative U Marijuana (THC) Screen Presumptive negative Drugs of Abuse Note Disclamer Hep Bs Antigen Non-reactive Hepatitis C Antibody HIV 1&2 Antibody Rapid Non react HIV P24 Antigen Non react Rubella IgG Antibody Blood Type Antibody Screen 09/01/17 09/01/17 09/01/17 Unknown Unknown Unknown WBC 10.5 RBC 3.57 L Hgb 8.8 L Hct 28.6 L MCV 80 MCH 25 L MCHC 31 RDW 20.2 H Plt Count 225 Creatinine 0.9 Estimated GFR > 60 Uric Acid 6.9 Magnesium AST 15 ALT 6 L Lactate Dehydrogenase 283 H Urine Color [place] Urine Turbidity Clear Urine pH 6.0 Ur Specific [place] 1.045 H Urine Protein 100 mg/dl Urine Glucose (UA) 50 Urine Ketones Neg Urine Blood Neg Urine Nitrite Neg Urine Bilirubin Neg Urine Urobilinogen < 2.0 Ur Leukocyte Esterase Neg Urine WBC (Auto) 15.0 H Urine RBC (Auto) 4.0 U Epithel Cells (Auto) 4.0 Urine Mucus 3+ Urine Opiates Screen Urine Methadone Screen Ur Barbiturates Screen Ur Phencyclidine Scrn Ur Amphetamines Screen U Benzodiazepines Scrn Urine Cocaine Screen U Marijuana (THC) Screen Drugs of Abuse Note Hep Bs Antigen Hepatitis C Antibody HIV 1&2 Antibody Rapid HIV P24 Antigen Rubella IgG Antibody Blood Type Antibody Screen 09/02/17 00:21 WBC RBC Hgb Hct MCV MCH MCHC RDW Plt Count Creatinine Estimated GFR Uric Acid Magnesium 4.50 H AST ALT Lactate Dehydrogenase Urine Color Urine Turbidity Urine pH Ur Specific [place] Urine Protein Urine Glucose (UA) Urine Ketones Urine Blood Urine Nitrite Urine Bilirubin Urine Urobilinogen Ur Leukocyte Esterase Urine WBC (Auto) Urine RBC (Auto) U Epithel Cells (Auto) Urine Mucus Urine Opiates Screen Urine Methadone Screen Ur Barbiturates Screen Ur Phencyclidine Scrn Ur Amphetamines Screen U Benzodiazepines Scrn Urine Cocaine Screen U Marijuana (THC) Screen Drugs of Abuse Note Hep Bs Antigen Hepatitis C Antibody HIV 1&2 Antibody Rapid HIV P24 Antigen Rubella IgG Antibody Blood Type Antibody Screen
[2017-09-02] MEDS: LACTATED RINGERS 1,000 ML IV SCH (08:27)
--- NOTE | 2017-09-02 08:28 | Event Note ---
Date: 09/02/17 S: Feeling ok, few contractions O: UC's every 4-5 min, CAT I tracing, Magnesium at 2gm/hr, Pitocin @ 4mu A: IUP @ 37+ weeks, preeclampsia P: Pitocin augmentation Expect
[2017-09-02] MEDS: PITOCin/NS 30 UNIT/500ML 30 UNITS/500 ML BAG IV SCH (12:11)
--- NOTE | 2017-09-02 13:01 | Event Note ---
Date: 09/02/17 S: Feeling the contractions O; Arom clear fluid, /-2, FSE applied. Cat I tracing, Pit at 20 mu A: 37 + weeks, preeclampsia P: Expect
[2017-09-02] MEDS ORDERED: NARCAN 2 MG/2 ML IV PRN (15:34)
--- NOTE | 2017-09-02 16:02 | Anesthesia Consultation ---
Anesthesia Consult and Med Hx Date of service: 09/02/17 - Airway Anesthetic Teeth Evaluation: Good ROM Head & Neck: Adequate Mental/Hyoid Distance: Adequate Mallampati Class: Class II Intubation Access Assessment: Probably Good - Pulmonary Exam CTA: Yes - Cardiac Exam Cardiac Exam: RRR - Pre-Operative Health Status ASA Pre-Surgery Classification: ASA3, Emergency Proposed Anesthetic Plan: Epidural, Spinal - Pre-Anesthesia Comment Pre-Anesthesia Comments: PIH - Pulmonary Hx Asthma: No - Cardiovascular System Hx Hypertension: Yes (PIH) - Central Nervous System Hx Seizures: No Hx Psychiatric Problems: No - Endocrine Hx Renal Disease: No Hx Hypothyroidism: No Hx Hyperthyroidism: No - Hematic Hx Anemia: No Hx Sickle Cell Disease: No - Other Systems Hx Alcohol Use: No
[2017-09-02] MEDS ORDERED: fentaNYL-BUPIV 2 MCG/ML-0.125% 200 MCG/100 ML BAG EPIDURAL SCH (17:00)
[2017-09-02] MEDS ORDERED: PHENERGAN PR PRN (18:58)
[2017-09-02] MEDS ORDERED: TUCKS PAD TP PRN (18:58)
[2017-09-02] MEDS ORDERED: BENADRYL PO PRN (18:58)
[2017-09-02] MEDS ORDERED: PHENERGAN PO PRN (18:58)
[2017-09-02] MEDS ORDERED: DULCOLAX PR PRN (18:58)
[2017-09-02] MEDS ORDERED: ZOFRAN IV PRN (18:58)
[2017-09-02] MEDS ORDERED: TYLENOL PO PRN (18:58)
[2017-09-02] MEDS ORDERED: LANSINOH TP PRN (18:58)
[2017-09-02] MEDS ORDERED: NORCO 5/325 PO PRN (18:58)
[2017-09-02] MEDS ORDERED: MILK OF MAGNESIA PO PRN (18:58)
[2017-09-02] MEDS ORDERED: SODIUM CHLORIDE FLUSH SYRINGE 10 ML IV SCH (19:00)
--- NOTE | 2017-09-02 19:08 | Procedure Note ---
OB Delivery Note - Delivery Date of Delivery: 09/02/17 (18:12) Surgeon: RAQUEL EVANS Estimated blood loss: 300cc - Vaginal Delivery presentation: vertex Delivery position: OA Intrapartum events: preeclampsia Delivery induction: none Delivery augmentation: rupture of membranes, pitocin Delivery monitor: external FHT, external uterine, internal FHT Route of delivery: Delivery placenta: spontaneous (18:19) Delivery cord: 3 umbilical vessels Episiotomy: none Delivery laceration: 1st degree (right labial), 2nd degree (vaginal) Delivery repair: vicryl (3-0) Anesthesia: epidural Delivery comments: of a vigorous term male at 18:12. Cord double-clamped and cut by CNM and baby handed over to NICU team. Cord blood collected. Placenta delivered spontaneously with Patricia side presenting @ 18:19. Fundal massage and IV Pitocin bolus initiated. Heavy lochia initially but later light. Fundus F/ML/U- 2. 2nd degree vaginal & 1st degree right labial lac noted and repaired under epidural anesthesia. Patient tolerated the procedure well. Placenta intact. Sent to pathology due to PIH/IUGR. Mom and baby in stable. - Infant A at 1 minute: 8 at 5 minutes: 9 Infant Gender: Male (5 lbs 14oz (2674g))
[2017-09-02] MEDS: MAGNESIUM SULFATE 40 GM in NACL 0.9% 1000 ML 1,000 ML IV SCH (20:33)
[2017-09-02] MEDS ORDERED: PITOCin/NS 20 UNIT/1000ML DRIP 20,000 MILLIUNITS/1,000 ML BAG IV ONE (20:43)
[2017-09-02] MEDS: NORMODYNE PO SCH (23:37)
[2017-09-03] MEDS ORDERED: PITOCin/NS 20 UNIT/1000ML DRIP 20,000 MILLIUNITS/1,000 ML BAG IV ONE (02:57)
[2017-09-03] MEDS: MOTRIN PO SCH ×5 (06:00→23:59)
[2017-09-03] MEDS: PRENATAL VITAMIN PO SCH (10:16)
--- NOTE | 2017-09-03 10:30 | Progress Note ---
Assessment and Plan A: PP Day #1 Preeclampsia Anemia P: Follow Routine Orders Plans adoption of (no prior arrangements) Monitor BPs Anticipate D/C in AM Subjective - Subjective Date of service: 09/03/17 Patient reports: appetite normal, voiding normally, pain well controlled, flatus , ambulating normally, other (Denies HAs, dizziness, visual changes, N&V.) [place]: doing well, bottle feeding Objective - Vital Signs Latest vital signs: Vital Signs Temp Pulse Resp BP BP Pulse Ox 09/03/17 09:00 97.5 F L 90 18 113/74 09/03/17 07:14 98.2 F 85 18 126/87 100 09/03/17 06:18 20 09/03/17 05:00 98.4 F 89 18 121/89 100 09/03/17 03:58 98.3 F 95 H 20 119/83 100 09/03/17 01:33 97.9 F 95 H 20 135/84 100 09/02/17 23:37 86 123/80 09/02/17 22:49 98.0 F 93 H 20 123/80 100 09/02/17 21:04 97.6 F 94 H 18 133/91 100 09/02/17 19:46 86 128/76 09/02/17 19:36 98 H 162/62 09/02/17 19:05 110 H 110/65 09/02/17 18:50 92 H 120/75 09/02/17 18:35 97 H 124/74 09/02/17 18:29 100 H 122/70 09/02/17 18:19 91 H 100 09/02/17 18:14 89 100 09/02/17 18:09 100 H 99 09/02/17 18:04 99 H 99 09/02/17 17:59 100 H 99 09/02/17 17:55 94 H 89 09/02/17 17:54 94 H 100 09/02/17 17:49 83 137/85 99 09/02/17 17:44 88 99 09/02/17 17:39 85 134/87 100 09/02/17 17:34 89 99 09/02/17 17:29 83 137/91 100 09/02/17 17:24 84 100 09/02/17 17:19 85 141/92 100 09/02/17 17:14 87 100 02/0618 17:09 86 99 02/0618 17:08 83 139/91 0218 17:04 86 99 020618 16:59 86 100 020618 16:58 85 138/90 0218 16:54 84 99 0618 16:49 82 146/93 100 020618 16:44 86 100 0618 16:39 89 100 18 16:38 89 141/96 18 16:34 92 H 100 020618 16:29 91 H 100 0218 16:28 92 H 145/95 0218 16:24 87 100 0218 16:19 87 136/91 100 18 16:14 86 100 18 16:09 88 100 18 16:07 90 130/91 0218 16:05 90 128/82 09/02/17 16:04 86 100 09/02/17 16:03 88 129/83 0218 16:01 89 123/81 0218 15:59 88 129/78 0218 15:58 90 98 02/06/18 15:57 85 149/76 0218 15:55 89 146/75 18 15:53 93 H 99 02/06/18 15:48 103 H 98 /0618 15:43 94 H 98 02/06/18 15:38 91 H 98 18 15:33 95 H 99 0618 15:28 85 99 020618 15:23 95 H 98 02/06/18 15:18 92 H 98 020618 15:15 96 H 136/76 02/0618 15:13 98 H 99 02/0618 15:08 67 90 020618 15:03 92 H 100 18 14:58 89 99 02/0618 14:53 99 H 100 18 14:48 92 H 99 02/0618 14:43 87 99 0206/18 14:38 87 98 02/18 14:33 97 H 99 0618 14:28 86 99 02/18 14:23 90 99 02/06/18 14:18 96 H 99 02/06/18 14:16 89 135/82 02/06/18 14:13 88 100 02/0618 14:08 92 H 99 02/0618 14:03 86 99 02/06/18 13:58 89 99 02/0618 13:53 89 99 02/06/18 13:48 89 99 02/0618 13:43 95 H 99 020618 13:38 89 100 0218 13:33 94 H 100 02/0618 13:28 96 H 100 0218 13:23 96 H 99 020618 13:18 99 H 100 02/18 13:15 85 129/92 09/02/17 13:13 86 100 0218 13:08 85 100 18 13:03 89 100 0218 12:58 93 H 100 18 12:53 91 H 99 18 12:48 85 98 0218 12:43 86 98 02/0618 12:38 86 98 0218 12:33 87 99 020618 12:28 85 99 18 12:23 90 99 0218 12:20 97.9 F 91 H 18 112/69 99 0218 12:18 91 H 99 18 12:15 83 112/69 0218 12:13 92 H 99 18 12:08 88 99 0618 12:03 89 99 18 11:58 90 99 020618 11:53 93 H 98 02/0618 11:48 88 98 02/0618 11:43 91 H 98 020618 11:38 91 H 99 020618 11:33 86 98 02/0618 11:28 86 99 02/0618 11:23 83 98 02/06/18 11:18 85 99 02/0618 11:16 88 112/76 0218 11:13 87 98 02/0618 11:08 85 98 02/0618 11:03 88 98 020618 10:58 83 98 020618 10:53 84 98 09/02/17 10:48 85 98 09/02/17 10:43 90 99 09/02/17 10:38 85 99 09/02/17 10:33 83 98 Intake and Output 09/02/17 09/03/17 09/03/17 22:59 06:59 14:59 Intake Total 1200 120 120 Output Total 200 200 250 Balance 1000 -80 -130 Intake: IV 1080 Magnesium Sulfate 40 gm 1080 In NaCl 0.9% 1000 ml 1, 000 ml @ 2 GM/HR 54 mls/ hr IV DIRECT CYNDI Rx#: [id number] Oral 120 Intake, Free Water 120 120 Output: Urine 200 200 250 Indwelling Catheter 200 200 250 Other: Total, Intake Amount 120 Total, Output Amount 200 200 250 # Voids Void 0 Estimated Blood Loss 300 - Exam Breasts: Present: normal Cardiovascular: Present: Regular rate Lungs: Present: Clear to auscultation, Normal air movement Abdomen: Present: normal appearance, soft, normal bowel sounds Uterus: Present: normal, firm, fundal height below umbilicus Extremities: Present: normal - Labs Labs: Abnormal lab results 09/02/17 09/02/17 09/03/17 Range/Units 11:55 19:54 01:20 Magnesium 6.90 H 5.90 H 5.70 H (1.7-2.3) mg/dL 09/03/17 Range/Units 05:42 Magnesium 5.20 H (1.7-2.3) mg/dL
[2017-09-03] MEDS: NORMODYNE PO SCH (13:07)
[2017-09-03] MEDS: FEOSOL PO SCH (13:12)
[2017-09-04] MEDS: MOTRIN PO SCH ×2 (00:02→05:37)
[2017-09-04] MEDS: NORMODYNE PO SCH ×2 (00:04→11:46)
--- NOTE | 2017-09-04 10:54 | Progress Note ---
Assessment and Plan A: PP Day #2 Preeclampsia P: Follow Routine orders D/c Home today Scripts called to pharmacy for: Labetolol 200mg PO BID Ferrous Sulfate 325mg PO BID Motrin 800mg PO q 8hours PRN RTO in 1 week for BP check Subjective - Subjective Date of service: 09/04/17 Patient reports: appetite normal, voiding normally, pain well controlled, flatus , ambulating normally : doing well, bottle feeding Objective - Vital Signs Latest vital signs: Vital Signs Temp Pulse Resp BP BP Pulse Ox 09/04/17 09:05 98.3 F 90 18 128/83 99 09/04/17 00:04 90 128/77 09/04/17 00:00 98.4 F 90 16 128/77 09/03/17 16:45 98 F 88 18 104/75 09/03/17 13:07 89 123/81 Intake and Output 09/03/17 09/04/17 09/04/17 22:59 06:59 14:59 Intake Total 240 Output Total 900 Balance -660 Intake: Oral 240 Output: Urine 900 Void 900 Other: Total, Intake Amount 240 Total, Output Amount 900 # Voids Void 3 1 - Exam Breasts: Present: normal Cardiovascular: Present: Regular rate Lungs: Present: Clear to auscultation, Normal air movement Abdomen: Present: normal appearance, soft, normal bowel sounds Uterus: Present: normal, firm, fundal height below umbilicus Extremities: Present: normal
[2017-09-04] MEDS: FEOSOL PO SCH (11:46)
[2017-09-04] MEDS: PRENATAL VITAMIN PO SCH (11:46)
[2017-09-04 17:37] VITALS: BP 141/90
== END 2017-09-04 18:10 | disposition home or self-care (01) | DRG 775 ==
LOC: TRG 15:02 → LD 20:29 → OB 09-02 20:24
PROVIDERS: ADMIT Obstetrics & Gynecology; ATTEND Obstetrics & Gynecology
PROC: 10E0XZZ Delivery of Products of Conception, External Approach (ICD-10-PCS; principal; 2017-09-02)
PROC: 0KQM0ZZ Repair Perineum Muscle, Open Approach (ICD-10-PCS; 2017-09-02)
PROC: 10907ZC Drainage of Amniotic Fluid, Therapeutic from Products of Conception, Via Natural or Artificial Opening (ICD-10-PCS; 2017-09-02)
PROC: 3E0R3BZ Introduction of Anesthetic Agent into Spinal Canal, Percutaneous Approach (ICD-10-PCS; 2017-09-02)
PROC: 00HU33Z Insertion of Infusion Device into Spinal Canal, Percutaneous Approach (ICD-10-PCS; 2017-09-02)
DX: O14.14 Severe pre-eclampsia complicating childbirth (principal); O71.4 Obstetric high vaginal laceration alone; Z37.0 Single live birth; O36.5930 Maternal care for other known or suspected poor fetal growth, third trimester, not applicable or unspecified; Z3A.38 38 weeks gestation of pregnancy; O75.89 Other specified complications of labor and delivery; O90.81 Anemia of the puerperium; D64.9 Anemia, unspecified
CPT/HCPCS: 36415; 76805; 80307; 81001; 82565; 83615; 83735; 84450; 84460; 84550; 85027; 86592; 86706; 86762; 86803; 86850; 86900; 86901; 87806; 88307; J0290; J0360; J2590; J3475; J7030; J7120; Q0169